=== PATIENT | female | born 1980 | race Caucasian/White ===

== ENCOUNTER 2016-07-24 15:11 | Emergency (ER) | payer SELFPAY ==
[~2016-07-24] VITALS: Ht 157.5 cm; Wt 69.1 kg
[2016-07-24 15:15] VITALS: Ht 157.5 cm; Wt 69.1 kg
[2016-07-24] MEDS ORDERED: ATEN25TA PO (15:29)
[2016-07-24] MEDS ORDERED: LEVO25TA9 PO (15:29)
--- NOTE | 2016-07-24 15:35 | NUR ---
PROVIDER DR NAAV IN TO SEE PATIENT.
--- NOTE | 2016-07-24 15:39 | ERPDOC ---
Departure Disposition Decision Date: Jul 24, 2016 Disposition Decision Time: 17:11 Disposition: 01 DISCHARGED HOME, SELF-CARE Impression Impression Impression: Primary Impression: Abscess of right upper eyelid Severity: Moderate Condition: Improved Seen By: Physician only Patient Instructions: Cellulitis (ED) Problems/Meds/Labs Reviewed?: Yes Medications reviewed and manag: Yes Additional Instructions: Follow-up for reevaluation Start Bactrim tonight, start Keflex tomorrow Follow up care ordered?: Yes Mental Status: Alert, Oriented Scripts Cephalexin (Keflex) 500 Mg Capsule 1 CAP PO TID for 7 Days, #21 CAP Prov: ML NAVA MD 07/24/16 Sulfamethoxazole/Trimethoprim (Bactrim Ds Tablet) 1 Each Tablet 1 TAB PO BID, #7 TAB 0 Refills Prov: ML NAVA MD 07/24/16 HPI - EENT General General Chief Complaint: Eye Problems Stated Complaint: R EYE SWOLLEN Time Seen by Provider: 15:35 Source: patient Exam Limitations: no limitations HPI - EENT General Initial Comments Patient is a 36-year-old female from [place]. Patient presents the ER for evaluation of pain and swelling around right eye. Patient noticed increased swelling and pain starting 4 days ago especially of her right eyelid, which has gotten worse. Patient here to visit her father from out of town, significant pain and swelling, now unable to open the eye secondary to the swelling, father brought patient to the ER for evaluation on arrival patient tachycardic at 131 temperature 99.0 Occurred At: home Onset/Timing: Gradual, Getting worse Duration: other (4-5 days) Pain/Severity Scale: Now & Worst: 2/10 Location: eye (R) Allergies: Coded Allergies: No Known Allergies (Unverified , 07/24/16) Past History Past Medical History Metabolic: hypertension, hypothyroidism Surgical History Denies Surgeries Social History Smoking Status: Current every day smoker Substance Use Type: does not use Alcohol Intake: occasionally Review of Systems Constitutional Constitutional: DENIES: chills, dizziness, fever, weakness Eyes Lids/Accessories: erythema, swelling Vision: DENIES: blurring, loss of visual hines ENMT Sinuses: DENIES: congestion Mouth/Throat: DENIES: scratchy throat, sore throat Cardiovascular Cardiac: DENIES: chest pain Pulmonary Respiratory: DENIES: cough GI Upper Abdomen: DENIES: pain Lower Abdomen: DENIES: pain Musculoskeletal General: DENIES: pain Endocrine Endocrine: DENIES: heat/cold intolerance Hematologic/Lymphatic Hematologic/Lymphatic: DENIES: anemia Physical Exam General General Nourishment: well nourished, well developed General Body Habitus: well groomed Vitals and Pain Weight: Kilograms: 69.100 Height (feet): 5 Height (inches): 2.00 Triage Pain Scale: RN VS reviewed by Provider: Yes Eyes (brief) Eyes Brief: found: EOMI, PERRL, other (patient with markedly swollen right eyelid, apparent abscess of right upper eyelid, tender to palpation of periorbital structures) ENMT (brief) ENMT Brief: FOUND: TM clear, TM good light reflex, mucosa moist, normal dentition Neck (brief) Neck: NOT FOUND: adenopathy, spasm, tenderness Respiratory (brief) Respiratory: FOUND: clear all hines, equal bilaterally, NOT FOUND: rales, wheezes Cardiovascular (brief) Cardiac: FOUND: regular rate, regular rhythm Capillary Refill: <2 sec Abdomen (brief) Abdominal Brief: FOUND: bowel normo active x4, soft, NOT FOUND: tender Lymphatic (brief) Lymphatic Brief: FOUND: adenopathy (mild right anterior cervical chain) Musculoskeletal (brief) Musculoskeletal Brief: NOT FOUND: spasm, tenderness Integumentary (brief) Integumentary Brief: FOUND: dry, pink, warm, NOT FOUND: rash Neurologic (brief) Neurological Brief: FOUND: CN w/o gross def to obs, motor-no gross deficits, sensory-no gross deficits Psychiatric (brief) Psychiatric Brief: FOUND: alert, oriented Differential Diagnoses Considering: Cellulitis, Sinusitis, Other (orbital cellulitis) Procedures Procedures Performed Procedures Performed: Incision & Drainage Incision and Drainage Procedure I&D : Site: right upper eyelid Prep: hibiclens Anesthetic: 1% Lidocaine Volume of Anesthetic (cc's): 3 Blade Size: #11 Drainage: Y Amount (cc's): 3 Culture Obtained?: No Dressing: No Antibiotics: Bactrim DS Progress Results/Orders Orders Procedure Category Date Status Time Lactate - Lactic Acid LAB 07/24/16 Complete 15:40 Blood Culture SHONA 07/24/16 Complete 15:40 Cbc W/Auto LAB 07/24/16 Complete Diff-Reflex Manual 15:40 Cmp - Comprehensive LAB 07/24/16 Complete Metabolic 15:40 Procalcitonin LAB 07/24/16 Complete 15:40 Iv Lock (Ed Only) EDM 07/24/16 Transmitted 15:40 Cefepime (Maxipime) PHA 07/24/16 Complete 15:45 Normal Saline (Normal PHA 07/24/16 Complete Saline Iv) 15:45 Lidocaine 1% PHA 07/24/16 Complete (Xylocaine 1%) 15:45 LAB 07/24/16 Complete Qualitative, Serum 15:40 Ct Orbits W/Contrast CT 07/24/16 Resulted 16:22 Iohexol (Omnipaque) PHA 07/24/16 Complete 16:31 Normal Saline (Ns) PHA 07/24/16 Complete 16:31 Saline Flush (Iv PHA 07/24/16 Complete Flush) 16:31 Lab Results Laboratory Tests Test 07/24/16 15:57 White Blood Count 15.9T/MM3 Red Blood Count 4.36M/MM3 Hemoglobin 13.7GM/DL Hematocrit 40.2% Mean Corpuscular Volume 92.2UM3 Mean Corpuscular Hemoglobin 31.4UUG Mean Corpuscular Hemoglobin Concent 34.1GM/DL RDW Standard Deviation 40.6FL Platelet Count 334T/MM3 Mean Platelet Volume 8.4UM3 Immature Granulocyte % (Auto) % Neutrophils (%) (Auto) % Lymphocytes (%) (Auto) % Monocytes (%) (Auto) % Eosinophils (%) (Auto) % Basophils (%) (Auto) % Absolute Immature Granulocyte (auto T/MM3 Absolute Neutrophils (auto) T/MM3 Absolute Lymphocytes (auto) T/MM3 Absolute Monocytes (auto) T/MM3 Absolute Eosinophils (auto) T/MM3 Absolute Basophils (auto) T/MM3 Neutrophils % (Manual) 72.0% Band Neutrophils % 2.0% Lymphocytes % (Manual) 14.0% Reactive Lymphocytes % 2.0% Monocytes % (Manual) 10.0% Absolute Neutrophils (Manual) 11.4T/MM3 Band Neutrophils # 0.3T/MM3 Lymphocytes # (Manual) 2.2T/MM3 Reactive Lymphocytes # 0.3T/MM3 Monocytes # (Manual) 1.6T/MM3 Red Cell Morphology Comment Normal Turbidity < 20 Sodium Level 143MEQ/L Potassium Level 3.8MEQ/L Chloride Level 102MEQ/L Carbon Dioxide Level 30MEQ/L Anion Gap 11MEQ/L Blood Urea Nitrogen 11.0MG/DL Creatinine 0.7MG/DL Glomerular Filtration Rate Calc 96 BUN/Creatinine Ratio 16RATIO Glucose Level 128MG/DL Calculated Osmolality 276MOSM/KG Calcium Level 9.4MG/DL Total Bilirubin 0.50MG/DL Icterus Index < 2 Aspartate Amino Transf (AST/SGOT) 24U/L Alanine Aminotransferase (ALT/SGPT) 31U/L Alkaline Phosphatase 57U/L Total Protein 6.6G/DL Albumin 3.6G/DL Globulin 3.0G/DL Albumin/Globulin Ratio 1.2RATIO Plasma Lactate 1.2MMOL/L Procalcitonin < 0.05NG/ML Human Chorionic Gonadotropin, Qual Negative Chemistry Specimen Hemolysis < 15 Medications Current ED Medications Cefepime HCl 1 g/ Sodium Chloride 100 ml @ 200 mls/hr O ONCE IV Last administered on 07/24/16 16:11; Start 07/24/16 at 15:45; Stop 07/24/16 at 16:14 ; Status DC Sodium Chloride (Normal Saline IV) 1,000 ml @ 150 mls/hr Q6H40M ONCE IV Last administered on 07/24/16 15:52; Start 07/24/16 at 15:45; Stop 07/24/16 at 17:21 ; Status DC Lidocaine HCl (Xylocaine 1%) 100 mg O ONCE INFIL Last administered on 15:52; Start 07/24/16 at 15:45; Stop 07/24/16 at 15:46; Status DC Iohexol 1 bottle 1 bottle STK-MED ONCE .ROUTE ; Start 07/24/16 at 16:31; Stop at 16:32; Status DC Sodium Chloride (NS) 100 ml @ As Directed STK-MED ONCE .ROUTE ; Start 07/24/16 at 16:31; Stop 07/24/16 at 16:32; Status DC Sodium Chloride (Iv Flush) 10 ml STK-MED ONCE .ROUTE ; Start 07/24/16 at 16:31; Stop 07/24/16 at 16:32; Status DC CT CT : CT: Other (CT orbits) Interpretation: Normal, Reviewed Written Report (no orbital cellulitis) ML NAVA MD Jul 24, 2016 15:39
[2016-07-24] MEDS ORDERED: NORMAL SALINE 1,000 ML IV ONE (15:45)
[2016-07-24] MEDS ORDERED: CEFEPIME 1 G in NORMAL SALINE 100 ML IV ONE (15:45)
[2016-07-24] MEDS ORDERED: LIDOCAINE 1% (10mg/ml) 30ml SDV INFIL ONE (15:45)
[2016-07-24 16:04] LABS: HCT - HEMATOCRIT 40.2 % (36-46); HGB - HEMOGLOBIN 13.7 GM/DL (12-16); MEAN CORPUSCULAR HGB 31.4 UUG (26-34); MEAN CORPUSCULAR HGB CONC(MCHC 34.1 GM/DL (31-37); MEAN CORPUSCULAR VOLUME 92.2 UM3 (80-100); MEAN PLATELET VOLUME 8.4 UM3 (9.4-12.4); RED BLOOD COUNT 4.36 M/MM3 (4.00-5.20); WBC - WHITE BLOOD COUNT 15.9 T/MM3 (4.5-11.0)
[2016-07-24 16:13] LABS: ALBUMIN 3.6 G/DL (3.5-5.0); ALBUMIN/GLOBULIN RATIO 1.2 RATIO (1.1-2.2); ALKALINE PHOSPHATASE 57 U/L (38-126); ALT (SGPT) 31 U/L (9-52); ANION GAP 11 MEQ/L (5-15); AST (SGOT) 24 U/L (14-36); BUN/CREATININE RATIO 16 RATIO (6-26); CALCIUM 9.4 MG/DL (8.4-10.2); CHLORIDE 102 MEQ/L (98-107); CO2 - CARBON DIOXIDE 30 MEQ/L (22-30); CREATININE 0.7 MG/DL (0.7-1.2); GLOMERULAR FILTRATION RATE 96; GLUCOSE 128 MG/DL (65-110); POTASSIUM 3.8 MEQ/L (3.6-5); SODIUM 143 MEQ/L (134-144); TOTAL PROTEIN 6.6 G/DL (6.3-8.2)
[2016-07-24 16:14] LABS: LACTATE - LACTIC ACID 1.2 MMOL/L (0.6-2.2)
--- NOTE | 2016-07-24 16:15 | NUR ---
PROVIDER DR NAVA IN TO SEE PATIENT.
[2016-07-24 16:24] LABS: BAND NEUTROPHILS # 0.3 T/MM3; LYMPHOCYTES # (MANUAL) 2.2 T/MM3 (1-4.8); MONOCYTES # (MANUAL) 1.6 T/MM3 (0-0.8); NEUTROPHILS #(MANUAL)-ABSOLUTE 11.4 T/MM3 (1.8-7.7); REACTIVE LYMPHOCYTES # 0.3 T/MM3 (0-0); TOTAL CELLS COUNTED 100 %
[2016-07-24] MEDS ORDERED: IOHEXOL 300 MG/ML 50ml INJECTION ONE (16:31)
[2016-07-24] MEDS ORDERED: SALINE FLUSH 10ml SYRINGE ONE (16:31)
[2016-07-24] MEDS ORDERED: NORMAL SALINE 100 ML ONE (16:31)
--- NOTE | 2016-07-24 16:38 | NUR ---
TO CT PER CART.
--- NOTE | 2016-07-24 16:54 | NUR ---
BACK FROM CT
--- NOTE | 2016-07-24 17:01 | NUR ---
SKIN LANCED SITE IS CLEAN DRY AND INTACT. BANDAID IN PLACE. NO BLEEDING NOTED.
--- NOTE | 2016-07-24 17:07 | DI ---
Indication: ITS.REASON: rule out periorbital versus orbital cellulitis PROCEDURE: CT ORBITS W/CONTRAST: Encounter: Initial Comparison: None. Technique: Helical imaging was performed through the orbits after the uneventful administration of 50 cc of Omnipaque 300. Findings: There is fairly extensive preseptal soft tissue swelling. There is no definite extension into the pericallosal or intraconal fat. The orbital growth globes themselves are fairly symmetric. The orbital musculature is also symmetric. There is no definite distention of the superior ophthalmic vein to suggest cavernous carotid fistula. The cavernous sinuses are not distended. The central [place] of [place] and cervical vasculature are unremarkable. There is normal aeration of the paranasal sinuses. Impression: No abnormal area of enhancement. No evidence for orbital or periorbital abnormality with moderate preseptal edema anterior to the right eye. .
--- NOTE | 2016-07-24 17:09 | NUR ---
PROVIDER DR NAVA IN TO SEE PATIENT.
[2016-07-24] MEDS ORDERED: SULF1TAB42 PO (17:13)
[2016-07-24] MEDS ORDERED: CEPH-583 PO (17:13)
[2016-07-24 17:20] VITALS: BP 140/92; PULSE 109; RESP 15; TEMP 98.7; O2SAT 98
== END 2016-07-24 17:20 | disposition home or self-care (01) ==
LOC: ED 15:11
DX: H00.031 Abscess of right upper eyelid (principal)
CPT/HCPCS: 36415; 80053; 83605; 84145; 84703; 85025; 87040